=== PATIENT | female | born 1985 | race African-American/Black ===

== ENCOUNTER 2020-10-08 06:26 | Inpatient (IN) ==
[~2020-10-08 06:26] MED LIST: EPHEDRINE SULFATE INJ ONE; PITOCIN ONE; REGLAN INJ 10 MG VIAL ONE; ZOFRAN INJ 4 MG VIAL ONE
[2020-10-08] MEDS ORDERED: ANCEF VIAL 1 GRAM IVP ONE (06:30)
[2020-10-08] MEDS ORDERED: ANCEF 1 GRAM IV PREMIX* 2 G/100 ML BAG IV ONE (06:44)
[2020-10-08] MEDS ORDERED: LR 1000 ML IV 1,000 ML IV ONE ×2 (06:44→06:56)
[2020-10-08] MEDS ORDERED: XYLOCAINE 1 % (PLAIN) ONE (06:56)
[2020-10-08] MEDS ORDERED: DILAUDID INJ ONE (06:56)
[2020-10-08] MEDS ORDERED: D5 1/2 NS 1L W PITOCIN 20 UNITS/L 20 UNITS/1,000 ML BAG IV ONE (07:52)
[2020-10-08] MEDS ORDERED: PHENERGAN INJ 25 MG IM PRN (08:42)
[2020-10-08] MEDS ORDERED: BENADRYL INJ 50 MG VIAL IVP PRN ×2 (08:42→09:55)
[2020-10-08] MEDS ORDERED: REGLAN INJ 10 MG VIAL IVP PRN ×2 (08:42→09:55)
[2020-10-08] MEDS ORDERED: BARHEMSYS INJ IVP PRN (08:42)
[2020-10-08] MEDS ORDERED: ZOFRAN INJ 4 MG VIAL IVP PRN ×2 (08:42→09:55)
[2020-10-08] MEDS ORDERED: PERCOCET TAB 5/325 MG PO PRN (09:55)
[2020-10-08] MEDS ORDERED: MYLICON TAB 80 MG CHEW PO PRN (09:55)
[2020-10-08] MEDS ORDERED: D5 1/2 NS 1000 ML 1,000 ML with PITOCIN 20 UNITS IV SCH ×2 (09:55)
[2020-10-08] MEDS ORDERED: NARCAN INJ IVP PRN ×2 (09:55)
[2020-10-08] MEDS: PRENATAL PLUS PO SCH (10:45)
[2020-10-08] MEDS: TORADOL 30 MG VIAL IVP SCH ×2 (10:57→16:42)
[2020-10-08] MEDS: MOTRIN TAB 800 MG PO PRN (21:00)
[2020-10-09] MEDS: TORADOL 30 MG VIAL IVP SCH ×2 (05:47)
[2020-10-09 06:30] LABS: HEMATOCRIT 30.3 % (36.0-47.0); HEMOGLOBIN 10.2 g/dL (12.0-16.0)
[2020-10-09] MEDS: PRENATAL PLUS PO SCH (08:11)
--- NOTE | 2020-10-09 08:42 | NOTE.PROBC ---
Progress Note OB-C/S Subjective Data Subjective: No complaints, decreased lochia. Tolerating regular diet. No N/V. Ambulating well. Soliman draining well. Pain under good control with toradol. Objective Data Result Diagrams: 10/09/20 05:15 Objective Data: CV= RRR no MRG Lungs=CTA Bilaterally Abd=(+) BS, soft, ND, appropriately tender near incision. Bandage removed. Incision clean/dry/intact, no erythema, no bleeding, no discharge. Dermabond/St itches intact. Fundus firm/NT/ at 3 cm below umbilicus. Ext= No edema, NT, No Cords. Graduated Compression Stockings/Sequential Compression Devices Bilaterally. Plan (1) delivery delivered: Plan: d/c home and f/u in one week. (2) Pelvic adhesive disease:
[2020-10-09] MEDS ORDERED: TORADOL 30 MG VIAL IVP PRN (09:00)
[2020-10-09] MEDS: MOTRIN TAB 800 MG PO PRN (12:29)
[2020-10-09 16:20] VITALS: BP 122/60
== END 2020-10-09 16:15 | disposition home or self-care (01) | DRG 788 ==
LOC: LD 06:26 → MED/SURG 09:57
PROVIDERS: ADMIT Obstetrics & Gynecology; ATTEND Obstetrics & Gynecology
DX: Z3A.39 39 weeks gestation of pregnancy; Z37.0 Single live birth; N85.8 Other specified noninflammatory disorders of uterus; O32.8XX0 Maternal care for other malpresentation of fetus, not applicable or unspecified; Z20.822 Contact with and (suspected) exposure to COVID-19; O34.211 Maternal care for low transverse scar from previous cesarean delivery; N73.6 Female pelvic peritoneal adhesions (postinfective); Z01.812 Encounter for preprocedural laboratory examination